=== PATIENT | male | born 1950 | race Caucasian/White ===

== ENCOUNTER 2021-07-20 12:41 | Outpatient (CLI) | payer MEDICARE, BC | END 2021-07-20 12:42 | disposition critical access hospital (66) | LOC: EMS 12:41 | DX: R07.9 Chest pain, unspecified (principal); I10 Essential (primary) hypertension | CPT/HCPCS: A0425; A0427 ==

== ENCOUNTER 2021-07-20 13:03 | Emergency (ER) | payer MEDICARE, BC ==
--- NOTE | 2021-07-20 13:18 | ED Physician Documentation ---
PD HPI CHEST PAIN - Stated complaint Stated Complaint: CHEST PX - History obtained from History obtained from: Patient, EMS - Additional information Additional information: 71-year-old gentleman with history of hypertension, recent medication increase was driving about noon today and developed left upper chest tightening and pressure radiating to the left elbow. It was not associated with shortness of breath, sweats, nausea, or dizziness. He has no history of heart problems. Never smoker. Pain is kind of waxing and waning and still present only mildly. Got aspirin and nitroglycerin on the way here from EMS without a change in his pain. Review of Systems Ten Systems: 10 systems reviewed and negative Constitutional: reports: Reviewed and negative Cardiac: reports: Chest pain / pressure. denies: Palpitations Respiratory: denies: Dyspnea, Cough PD PAST MEDICAL HISTORY - Past Medical History Past Medical History: Yes Cardiovascular: Hypertension - Past Surgical History Past Surgical History: No - Present Medications Home Medications: Ambulatory Orders Medication Instructions Recorded Confirmed Aspirin [[place]] 07/20/21 Doxazosin Mesylate [Cardura Xl] 07/20/21 Losartan Potassium [Cozaar] 07/20/21 Omeprazole 07/20/21 Vitamin E (Dl,Tocopheryl Acet) 07/20/21 [Vitamin E] amLODIPine [Norvasc] 07/20/21 atenoloL [Tenormin] 50 mg PO DAILY 07/20/21 07/20/21 - Allergies Allergies/Adverse Reactions: Allergies Allergy/AdvReac Type Severity Reaction Status Date / Time rofecoxib [From Vioxx] AdvReac Unknown Verified 07/20/21 13:17 - Social History Does the pt smoke?: No Does the pt drink ETOH?: No Does the pt have substance abuse?: No - Family History Family history: reports: Non contributory PD ED PE NORMAL - Vitals Vital signs reviewed: Yes - General General: Alert and oriented X 3, No acute distress - HEENT HEENT: PERRL, EOMI - Neck Neck: Supple, no meningeal sign, No bony TTP - Cardiac Cardiac: RRR, No murmur - Respiratory Respiratory: No respiratory distress, Clear bilaterally - Abdomen Abdomen: Normal bowel sounds, Soft, Non tender - Back Back: No CVA TTP, No spinal TTP - Derm Derm: Normal color, Warm and dry - Extremities Extremities: No edema, No calf tenderness / cord - Neuro Neuro: Alert and oriented X 3, Normal speech Results - Vitals Vitals: Vital Signs - 24 hr 07/20/21 07/20/21 13:12 13:30 Temperature 36.8 C Heart Rate 71 19 L Respiratory 17 19 Rate Blood Pressure 141/83 H 148/88 H O2 Saturation 99 97 Oxygen O2 Source Room air - EKG (time done) 1306 Rate: Rate (enter#) (59) Rhythm: NSR [place]: Normal Intervals: Prolonged ME QRS: Normal Ischemia: Other (Concerning inferior ST elevation, albeit less than a millimeter so not quite diagnostic for STEMI. Also sub-mm EDER v6) 1317 Rate: Rate (enter#) (69) Rhythm: NSR [place]: Normal Intervals: Normal ME Ischemia: ST elevation c/w ischemia (Increasing inferior ST elevation compared to the first EKG, also some ST elevation in V6. Now diagnostic for STEMI) - Labs Labs: Laboratory Tests 07/20/21 07/20/21 07/20/21 13:13 13:13 13:13 WBC 13.4 H RBC 4.12 L Hgb 14.0 Hct 40.3 L MCV 97.8 H MCH 34.0 H MCHC 34.7 RDW 13.1 Plt Count 205 MPV 9.8 Neut # (Auto) 10.0 H Lymph # (Auto) 2.2 [place] # (Auto) 1.2 H Eos # (Auto) 0.0 Baso # (Auto) 0.0 Absolute Nucleated RBC 0.00 Nucleated RBC % 0.0 Sodium 139 Potassium 3.7 Chloride 107 Carbon Dioxide 21 Anion Gap 11.0 BUN 18 Creatinine 1.1 Estimated GFR (MDRD) 66 L Glucose 109 H Calcium 9.5 Total Bilirubin 0.7 AST 20 ALT 22 Alkaline Phosphatase 59 Troponin I High Sens 139.6 H* Total Protein 7.5 Albumin 3.9 Globulin 3.6 Albumin/Globulin Ratio 1.1 Lipase 28 - Rads (name of study) Single view chest x-ray is unremarkable Radiology: EMP read contemporaneously PD MEDICAL DECISION MAKING - ED course ED course: Initial EKG done at 1306 hrs. not diagnostic for STEMI, but is concerning. Second EKG done at 1317 hrs., now diagnostic for inferior STEMI with some lateral involvement. There is some worsening interval change. STEMI code called at 1317. He was accepted to [facility] ED by Dr. Karly perry at 1:28 PM. [place] are completed. He had already gotten aspirin prior to arrival and was given a heparin bolus here. We did page the water and fire technician on-call at [facility] to bring them into the loop but the call was not immediately returned and he was transferred with the ED physician being the accepting physician by [facility]. - Critical Care Time(min): 32 Time Includes: Direct patient care, Review records, Reassess patient, Document care, Coordinate care, Medical consult, Family consult for tx dec (by phone) Data interpretation: Labs, Pulse ox Procedures excluded from critical care time: EKG Departure - Departure Disposition: 02 Transfer Acute Care Hosp Clinical Impression: ST elevation myocardial infarction (STEMI) of inferior wall Condition: Critical Discharge Date/Time: 07/20/21 13:59
[2021-07-20] MEDS ORDERED: HEPARIN 5,000 UNIT/ML VIAL IVP STA (13:20)
[2021-07-20 13:24] LABS: BASOPHILS % (AUTO) 0.2 %; HCT - HEMATOCRIT 40.3 % (42.0-52.0); LYMPHOCYTES # (AUTO) 2.2 10^3/uL (1.5-3.5); LYMPHOCYTES % (AUTO) 16.4 %; MEAN CORPUSCULAR HGB CONC 34.7 g/dL (32.0-36.0); MEAN CORPUSCULAR VOLUME 97.8 fL (80.0-94.0); MEAN PLATELET VOLUME 9.8 fL (7.4-11.4); MONOCYTES # (AUTO) 1.2 10^3/uL (0.0-1.0); MONOCYTES % (AUTO) 8.6 %; NEUTROPHILS % (AUTO) 74.4 %; PLT - PLATELET COUNT 205 10^3/uL (130-450); RED BLOOD COUNT 4.12 10^6/uL (4.70-6.10); RED CELL DISTRIBUTION WIDTH 13.1 % (12.0-15.0); WHITE BLOOD COUNT 13.4 x10^3/uL (4.8-10.8)
[2021-07-20 13:42] VITALS: BP 148/88
[2021-07-20 13:42] LABS: ALBUMIN 3.9 g/dL (3.2-5.5); ALBUMIN/GLOBULIN RATIO 1.1 (1.0-2.2); BILIRUBIN,TOTAL 0.7 mg/dL (0.2-1.0); CALCIUM 9.5 mg/dL (8.5-10.3); CREATININE 1.1 mg/dL (0.6-1.2); POTASSIUM 3.7 mmol/L (3.5-5.0); TOTAL PROTEIN 7.5 g/dL (6.7-8.2)
--- NOTE | 2021-07-20 13:52 | XRAY Report ---
PROCEDURE: Chest 1 View X-Ray INDICATIONS: Chest Pain TECHNIQUE: One view of the chest was acquired. COMPARISON: None. FINDINGS: SUPPORT DEVICES: None. LUNGS/PLEURA: No focal consolidation, pleural effusion or space-occupying pneumothorax. MEDIASTINUM: The cardiomediastinal silhouette is within normal limits. BONES/SOFT TISSUES: No acute abnormality. IMPRESSION: 1.No acute cardiopulmonary abnormality. Reviewed by: Grayson Calixto MD on 07/20/2021 1:50 PM [facility] Approved by: Grayson Calixto MD on 07/20/2021 1:50 PM [facility] Station ID: [id number]
== END 2021-07-20 13:59 | disposition short-term general hospital (02) ==
LOC: ED 13:03
DX: I21.19 ST elevation (STEMI) myocardial infarction involving other coronary artery of inferior wall (principal); I10 Essential (primary) hypertension
CPT/HCPCS: 36415; 80053; 83690; 84484; 85025; 93005; 96374; 99291